=== PATIENT | female | born 1985 | race Asian ===

== ENCOUNTER 2018-06-02 14:58 | Emergency (ER) | payer OTHER, BC ==
[~2018-06-02] VITALS: Ht 160 cm; Wt 45.4 kg
[2018-06-02 15:18] LABS: *BILIRUBIN,URIN NEGATIVE (NEGATIVE); *BLOOD, URINE 3+ (NEGATIVE); *CLARITY,URINE CLOUDY (CLEAR); *COLOR,URINE Brown (YELLOW); *KETONES,URINE NEGATIVE (NEGATIVE); *PROTEIN,URINE 3+ (NEGATIVE); LEUKOCYTE ESTERASE ,URINE 2+ (NEGATIVE); NITRITE, URINE NEGATIVE (NEGATIVE); PH,URINE 6.5 (5.0-8.0); UGLUCOSE NEGATIVE (NEGATIVE)
[2018-06-02 15:30] LABS: *URINE HCG, QUAL NEGATIVE (NEGATIVE); BACTERIA,URINE MODERATE /HPF (NONE SEEN); MUCUS,URINE MODERATE /LPF (0-FEW); RBC,URINE TNTC /HPF (0-3); SQUAMOUS EPITHELIAL CELL,UR FEW /HPF (NONE SEEN); WBC,URINE 80-100 /HPF (0-3)
--- NOTE | 2018-06-02 15:37 | NUR ---
Dr Preston at the bedside for MSE.
[2018-06-02] MEDS ORDERED: CEPHALEXIN MONOHYDRATE 500 MG CAPSULE PO ONE (15:45)
[2018-06-02] MEDS ORDERED: PHENAZOPYRIDINE HCL 100 MG TABLET PO ONE (15:45)
[2018-06-02] MEDS ORDERED: ONDANSETRON ODT 4 MG TAB.RAPDIS SL ONE (15:45)
[2018-06-02] MEDS ORDERED: ONDANSETRON ODT 4 MG TAB.RAPDIS ONE (15:51)
[2018-06-02] MEDS ORDERED: PHENAZOPYRIDINE HCL 100 MG TABLET ONE (15:51)
[2018-06-02] MEDS ORDERED: CEPHALEXIN MONOHYDRATE 500 MG CAPSULE ONE (15:51)
--- NOTE | 2018-06-02 15:59 | NUR ---
Patient discharged to home in stable conditon. Written and verbal after care instructions given. Patient verbalizes understanding of instructions.
[2018-06-02 16:00] VITALS: BP 113/67
== END 2018-06-02 16:01 | disposition home or self-care (01) ==
LOC: ER 15:02
DX: N39.0 Urinary tract infection, site not specified (principal); K59.00 Constipation, unspecified; Z88.8 Allergy status to other drugs, medicaments and biological substances; Z88.2 Allergy status to sulfonamides
CPT/HCPCS: 84703; 87077; 87086; A4663; Q0162

== ENCOUNTER 2018-10-25 06:05 | Emergency (ER) | payer BC, OTHER ==
[~2018-10-25] VITALS: Ht 160 cm; Wt 45.4 kg
[2018-10-25 06:31] LABS: *BILIRUBIN,URIN NEGATIVE (NEGATIVE); *BLOOD, URINE 3+ (NEGATIVE); *CLARITY,URINE CLEAR (CLEAR); *COLOR,URINE RED (YELLOW); *KETONES,URINE NEGATIVE (NEGATIVE); *UROBILINOGEN,URINE 0.2 E.U./dl (NORMAL); LEUKOCYTE ESTERASE ,URINE 1+ (NEGATIVE); NITRITE, URINE NEGATIVE (NEGATIVE); UGLUCOSE NEGATIVE (NEGATIVE)
[2018-10-25 06:34] LABS: RBC,URINE 20-50 /HPF (0-3)
[2018-10-25 06:35] LABS: BACTERIA,URINE FEW /HPF (NONE SEEN); SQUAMOUS EPITHELIAL CELL,UR MANY /HPF (NONE SEEN); WBC,URINE 80-100 /HPF (0-3)
[2018-10-25 06:40] LABS: *URINE HCG, QUAL NEGATIVE (NEGATIVE)
[2018-10-25] MEDS ORDERED: ONDANSETRON ODT 4 MG TAB.RAPDIS ONE (06:57)
[2018-10-25] MEDS ORDERED: PHENAZOPYRIDINE HCL 100 MG TABLET ONE (06:57)
[2018-10-25] MEDS ORDERED: CEphaleXIN 500 MG CAPSULE ONE (06:57)
[2018-10-25] MEDS ORDERED: PHENAZOPYRIDINE HCL 100 MG TABLET PO ONE (07:00)
[2018-10-25] MEDS ORDERED: ONDANSETRON ODT 4 MG TAB.RAPDIS SL ONE (07:00)
[2018-10-25] MEDS ORDERED: CEphaleXIN 500 MG CAPSULE PO ONE (07:00)
--- NOTE | 2018-10-25 07:03 | NUR ---
Patient discharged to home in stable conditon. Written and verbal after care instructions given. Patient verbalizes understanding of instructions.
[2018-10-25 07:05] VITALS: BP 111/59
== END 2018-10-25 07:06 | disposition home or self-care (01) ==
LOC: ER 06:06
DX: N39.0 Urinary tract infection, site not specified (principal); Z88.2 Allergy status to sulfonamides; Z88.8 Allergy status to other drugs, medicaments and biological substances
CPT/HCPCS: 84703; 87077; 87086; A4663; Q0162